=== PATIENT | male | born 1940 | race Caucasian/White ===

== ENCOUNTER 2017-07-26 07:20 | Emergency (ER) | payer MEDICARE, OTHER ==
[~2017-07-26] VITALS: Ht 170.2 cm; Wt 66.3 kg
[2017-07-26 08:22] LABS: BASOPHILS # (AUTO) 0.02 x10^3/uL (0-0.1); BASOPHILS % (AUTO) 1 % (0-1); EOSINOPHILS # (AUTO) 0.03 x10^3/uL (0-0.4); EOSINOPHILS % (AUTO) 1 % (1-7); LYMPHOCYTES # (AUTO) 0.36 x10^3/uL (1-3.4); LYMPHOCYTES % (AUTO) 10 % (22-44); MD NO; MEAN CORPUSCULAR HEMOGLOBIN 32.5 pg (27.5-34.5); MEAN CORPUSCULAR HGB CONC 34.1 g/dL (33.2-36.2); MEAN CORPUSCULAR VOLUME 95.3 fL (81-97); MONOCYTES # (AUTO) 0.63 x10^3/uL (0.2-0.8); MONOCYTES % (AUTO) 18 % (2-9); NEUTROPHILS # (AUTO) 2.42 x10^3/uL (1.8-6.8); NEUTROPHILS % (AUTO) 70 % (42-75); PLATELET COUNT 112 x10^3/uL (130-400); RED BLOOD COUNT 4.74 x10^6/uL (4.38-5.82); RED CELL DISTRIBUTION WIDTH 14.3 % (9.4-14.8)
[2017-07-26 08:29] LABS: RAPID INFLUENZA A Negative (Negative); RAPID INFLUENZA B Negative (Negative)
[2017-07-26 08:32] LABS: ALBUMIN 3.7 g/dL (3.4-5.0); ANION GAP 8 mmol/L (5-15); CALCIUM 9.1 mg/dL (8.5-10.1); CHLORIDE 110 mmol/L (98-107); CREATININE 0.95 mg/dL (0.7-1.3)
[2017-07-26 09:34] VITALS: BP 149/75
[2017-07-30] MEDS ORDERED: ALEN10TA6 PO (11:43)
[2017-07-30] MEDS ORDERED: DOXA2TAB9 PO (11:43)
[2017-07-30] MEDS ORDERED: LOVA20TA2 PO (11:43)
== END 2017-07-26 09:36 | disposition home or self-care (01) ==
LOC: ED 08:10
DX: J00 Acute nasopharyngitis [common cold] (principal); E78.00 Pure hypercholesterolemia, unspecified
CPT/HCPCS: 36415; 71046; 80048; 82040; 83605; 85025; 87400; 99285

== ENCOUNTER → 2017-09-22 | Outpatient (CLI) | payer MEDICARE, OTHER ==
[~2017-09-22] MED LIST: ALEN10TA6 PO; DOXA2TAB9 PO; LOVA20TA2 PO
== END ==
LOC: CFH 07:53
PROVIDERS: ATTEND Registered Nurse
DX: R42 Dizziness and giddiness (principal)
CPT/HCPCS: 70450

== ENCOUNTER 2019-05-05 11:59 | Emergency (ER) | payer MEDICARE ==
[~2019-05-05] VITALS: Ht 170.2 cm; Wt 64.2 kg
[~2019-05-05 11:59] MED LIST changes: -ALEN10TA6 PO; +ALEN10TA7 PO
[2019-05-05] MEDS ORDERED: SODIUM CHLORIDE FLUSH 10ML SYR IVF ONE (12:30)
[2019-05-05] MEDS ORDERED: SODIUM CHLORIDE 0.9% 1,000ML IVBOLUS ONE (12:30)
[2019-05-05] MEDS ORDERED: ONDANSETRON 2MG/ML, 2ML IVPush ONE (12:30)
[2019-05-05] MEDS ORDERED: FAMOTIDINE 20 MG/2 ML IV ONE (12:30)
[2019-05-05] MEDS ORDERED: FAMOTIDINE 20 MG/2 ML ONE (12:44)
[2019-05-05] MEDS ORDERED: ONDANSETRON 2MG/ML, 2ML ONE (12:44)
[2019-05-05 12:45] LABS: BASOPHILS # (AUTO) 0.02 x10^3/uL (0-0.1); BASOPHILS % (AUTO) 0 % (0-1); EOSINOPHILS # (AUTO) 0.04 x10^3/uL (0-0.4); EOSINOPHILS % (AUTO) 1 % (1-7); LYMPHOCYTES # (AUTO) 0.88 x10^3/uL (1-3.4); LYMPHOCYTES % (AUTO) 18 % (22-44); MD NO; MEAN CORPUSCULAR HEMOGLOBIN 33.3 pg (27.5-34.5); MEAN CORPUSCULAR HGB CONC 33.7 g/dL (33.2-36.2); MEAN CORPUSCULAR VOLUME 99.1 fL (81-97); MEAN PLATELET VOLUME 8.4 fL (7.4-10.4); MONOCYTES # (AUTO) 0.71 x10^3/uL (0.2-0.8); MONOCYTES % (AUTO) 14 % (2-9); NEUTROPHILS # (AUTO) 3.35 x10^3/uL (1.8-6.8); NEUTROPHILS % (AUTO) 67 % (42-75); PLATELET COUNT 130 x10^3/uL (130-400); RED BLOOD COUNT 5.09 x10^6/uL (4.38-5.82); RED CELL DISTRIBUTION WIDTH 13.9 % (9.4-14.8)
[2019-05-05 12:54] LABS: ALANINE AMINOTRANSFERASE 30 U/L (12-78); ALBUMIN 3.9 g/dL (3.4-5.0); CALCIUM 8.7 mg/dL (8.5-10.1)
[2019-05-05 12:56] LABS: ALKALINE PHOSPHATASE 63 U/L (45-117); BILIRUBIN,TOTAL 2.4 mg/dL (0.2-1.0)
[2019-05-05 13:03] LABS: ANION GAP 3 mmol/L (5-15); CHLORIDE 112 mmol/L (98-107)
--- NOTE | 2019-05-05 13:11 | NUR ---
PT AMBULATORY TO ED TO FROM HOME. 1 EPISODE VOMITING MONDAY. DIARRHEA YEST. DENIES NAUSEA AT THIS TIME. DENIES WEAKNESS/DIZZINESS/CHILLS/FEVERS. WAS TOLD BY FRIEND TO COME TO ED. A&OX4 GCS 15. ABD SNT, BS PRESENT X4. DR. ESPINOZA AT BEDSIDE FOR EVAL. PIV PLACED, LABS DRAWN AND SENT, UA SENT, MEDS/FLUIDS PER MAR. AWAITING RESULTS. CALL YIN IN REACH. FELL PRECS.
--- NOTE | 2019-05-05 13:27 | NUR ---
REPORT TAKEN FROM LEANNE PHIPPS.
[2019-05-05 13:30] VITALS: BP 129/80
--- NOTE | 2019-05-05 13:30 | NUR ---
PT PROVIDED WITH HALF A CUP OF WATER FOR PO CHALLENGE. DENIES N/V AT THIS TIME. NADN. VSS. DENIES NEEDS.
[2019-05-05 13:34] LABS: CULTURE INDICATED? YES; MICROSCOPIC INDICATED
--- NOTE | 2019-05-05 13:52 | NUR ---
PIV REMOVED, PT AWARE OF DC PLAN. GETTING DRESSED NOW.
== END 2019-05-05 14:18 | disposition home or self-care (01) ==
LOC: ED 12:25
DX: K52.9 Noninfective gastroenteritis and colitis, unspecified (principal); E86.0 Dehydration; E78.00 Pure hypercholesterolemia, unspecified
CPT/HCPCS: 36415; 80053; 81001; 85025; 87086; 96374; 96375; 99283; J2405; J3490; J7030

== ENCOUNTER 2019-09-17 08:28 | Emergency (ER) | payer MEDICARE ==
[~2019-09-17] VITALS: Ht 170.2 cm; Wt 65.5 kg
[~2019-09-17 08:28] MED LIST changes: +ALEN10TA10 PO; -ALEN10TA7 PO
[2019-09-17] MEDS ORDERED: ASPIRIN 81 MG TABLET CHEW PO ONE (09:00)
[2019-09-17] MEDS ORDERED: ASPIRIN 81 MG TABLET CHEW ONE (09:02)
[2019-09-17 09:12] LABS: BASOPHILS # (AUTO) 0.05 x10^3/uL (0-0.1); BASOPHILS % (AUTO) 1 % (0-1); EOSINOPHILS # (AUTO) 0.18 x10^3/uL (0-0.4); EOSINOPHILS % (AUTO) 2 % (1-7); LYMPHOCYTES # (AUTO) 0.84 x10^3/uL (1-3.4); LYMPHOCYTES % (AUTO) 10 % (22-44); MD NO; MEAN CORPUSCULAR HEMOGLOBIN 32.4 pg (27.5-34.5); MEAN CORPUSCULAR VOLUME 98.2 fL (81-97); MEAN PLATELET VOLUME 7.8 fL (7.4-10.4); MONOCYTES # (AUTO) 0.62 x10^3/uL (0.2-0.8); MONOCYTES % (AUTO) 8 % (2-9); NEUTROPHILS # (AUTO) 6.45 x10^3/uL (1.8-6.8); NEUTROPHILS % (AUTO) 79 % (42-75); PLATELET COUNT 165 x10^3/uL (130-400); RED CELL DISTRIBUTION WIDTH 14.5 % (9.4-14.8)
[2019-09-17 09:22] LABS: ALANINE AMINOTRANSFERASE 31 U/L (12-78); ALBUMIN 3.9 g/dL (3.4-5.0); ANION GAP 4 mmol/L (5-15); CALCIUM 10.3 mg/dL (8.5-10.1); CHLORIDE 109 mmol/L (98-107); CREATININE 0.99 mg/dL (0.7-1.3)
[2019-09-17 09:26] LABS: ALKALINE PHOSPHATASE 73 U/L (45-117); BILIRUBIN,TOTAL 2.6 mg/dL (0.2-1.0); TOTAL PROTEIN 7.4 g/dL (6.4-8.2); TROPONIN I < 0.015 ng/mL (0.000-0.045)
[2019-09-17 10:34] VITALS: BP 123/76
[2019-09-17 11:54] LABS: TROPONIN I < 0.015 ng/mL (0.000-0.045)
== END 2019-09-17 11:36 | disposition home or self-care (01) ==
LOC: ED 09:30
DX: R07.89 Other chest pain (principal); E78.00 Pure hypercholesterolemia, unspecified
CPT/HCPCS: 36415; 71045; 80053; 83615; 84484; 85025; 93005; 99285